=== PATIENT | female | born 1950 | race Caucasian/White ===

== ENCOUNTER → 2017-12-23 14:25 | Outpatient (CLI) | payer MEDICARE, OTHER, SELFPAY ==
[2017-12-23 18:27] LABS: Urine N gonorrhoeae NOT DETECTED
[2017-12-23 18:29] LABS: Urine Chlamydia NOT DETECTED
== END ==
PROVIDERS: Visit Provider Naturopath
DX: N39.9 Disorder of urinary system, unspecified (principal)
CPT/HCPCS: 87491; 87591

== ENCOUNTER → 2018-04-28 15:50 | Outpatient (CLI) | payer MEDICARE, OTHER, SELFPAY ==
[2018-04-28 18:17] LABS: Free T4, Direct Thyroxine 1.26 ng/dL (0.78-2.19)
[2018-04-28 18:31] LABS: Thyroid Stimulating Hormone 4.45 uIU/mL (0.47-4.68)
[2018-04-28 18:36] LABS: Ferritin 43.2 ng/mL (11.1-264)
== END ==
PROVIDERS: Visit Provider Naturopath
DX: E03.9 Hypothyroidism, unspecified (principal); D64.9 Anemia, unspecified
CPT/HCPCS: 36415; 82728; 84439; 84443; 84481

== ENCOUNTER → 2018-12-04 09:07 | Outpatient (CLI) | payer MEDICARE, OTHER, SELFPAY ==
--- NOTE | 2018-12-04 | DI.US.S_ITS ---
PROCEDURE: US PELVIC COMPLETE INDICATIONS: PELVIC PAIN, GAS AND BLOATING TECHNIQUE: Real-time scanning was performed of the pelvic organs, with image documentation. Additional endovaginal scanning was necessary due to incomplete visualization of the adnexal and endometrial structures by transabdominal scanning. COMPARISON: [facility], US, PELVIC COMPLETE, 06/18/2010, 9:13. [facility], US, PELVIC COMPLETE, 12/08/2010, 11:00. FINDINGS: Transabdominal scanning: Limited scanning through the kidneys shows no hydronephrosis. No pathologic free abdominal or pelvic fluid. Endovaginal scanning: Uterus: Uterus is normal in size at 6.1 x 3.0 x 4.3 cm. The endometrium measures 5.3 mm in combined thickness. Subcentimeter myometrial cyst. Trace endometrial fluid. Moderate amount of endocervical fluid. Ovaries: Right ovary is enlarged measuring 8.3 x 7.3 x 5.7 cm and is multicystic with the largest cystic component measuring 6.6 x 5.4 x 5.4 cm. Multiple septations are present and there is mural nodularity. Color flow Doppler demonstrates flow within one of the septations. Left ovary is mildly enlarged measuring 4.5 x 3.4 x 3.1 cm and is also multicystic in appearance with multiple irregular septations and mural nodularity. Largest cystic component measures 3.1 x 3.3 x 2.4 cm. Doppler assessment demonstrates flow within several of the septations as well as the mural nodularity. IMPRESSION: 1. Abnormal appearance of the ovaries bilaterally which are enlarged, multicystic and contain internal septations and mural nodularity as described above. Overall, the size of the cysts as well as the internal characteristics has dramatically changed from the prior examination. Gynecologic consultation is recommended for further assessment as underlying neoplastic process such as cystadenoma/cystadenocarcinoma cannot be excluded. Given the size, particularly on the right, intermittent torsion can not be completely excluded and clinical correlation is recommended. 2. Endometrial complex is mildly thickened at 5.0 mm in trace endometrial fluid present. Recommend clinical correlation and followup as early endometrial neoplastic process cannot be excluded. 3. Moderate endocervical fluid present. Dictated by: Elias TONG Interpreted: Ifrah Emery MD on 12/05/2018 at 13:16 Approved by: Ifrah Emery M.D. on 12/05/2018 at 16:12
== END ==
PROVIDERS: Visit Provider Internal Medicine
DX: R10.2 Pelvic and perineal pain (principal); R14.0 Abdominal distension (gaseous); N83.8 Other noninflammatory disorders of ovary, fallopian tube and broad ligament; N83.202 Unspecified ovarian cyst, left side; N83.201 Unspecified ovarian cyst, right side; R93.89 Abnormal findings on diagnostic imaging of other specified body structures
CPT/HCPCS: 76830; 76856

== ENCOUNTER 2019-01-04 09:56 | Day surgery (SDC) | payer MEDICARE, OTHER, SELFPAY ==
[2018-12-26 13:21] VITALS: BMI 25.0
[2019-01-04] VITALS (12 sets, daily range): BP systolic 131–177; BP diastolic 71–88; PULSE 65–78; RESP 9–15; TEMP 36.2–36.8; O2SAT 94–98; BMI 25.0
--- NOTE | 2019-01-04 | PATH_ITS ---
Note [facility] Accession Number: [id number] TESTS RESULT FLAG UNITS REF RANGE LAB Clinician Provided Cytology Information No. of containers..01 ThinPrep Vial 01 RIGHT OVARY DIAGNOSIS: 02 RIGHT OVARY NEGATIVE FOR MALIGNANT CELLS. THIS INTERPRETATION INCLUDES EVALUATION OF A CELL BLOCK. BENIGN MUCIPHAGES / MACROPHAGES IN A BACKGROUND OF ACELLUAR DEBRIS. Pathologist ICD10: 02 D27.0 02 Jennifer Macias MD, Pathologist NPI- [id number] Shar Modi, Giving Officer ([facility]) 01 70 CC, YELLOW, CLEAR /LCS FLAG LEGEND: L-Low Normal,H-High Normal,LL-Alert Low,HH-Alert High <-Panic Low,>-Panic High,A-Abnormal,AA-Critical Abnormal Performed at: 01 =Z [facility] [address], [place] [address] Hang Swift MD, 02 LCLWA [facility] [address] [place] [id number] Luci Honeycutt MD, Performed at: 01 [facility] [address], [place], [place] [id number] MD Hang Swift MD Phone: [phone]
--- NOTE | 2019-01-04 | PATH_ITS ---
[facility] Accession Number: [id number] . 01 Material submitted: . PART A: uterine adnexa - RIGHT AND LEFT OVARY AND FALLOPIAN TUBES PART B: uterus - UTERINE CURETTINGS . 01 Clinical history: . ABNORMAL FINDINGS ON DIAGNOSTIC IMAGING OTHER NONINFLAMMATORY DISORDERS OF OVARY, FALLOPIAN STRICTURE AND STENOSIS OF CERVIX UTERI . 02 Diagnosis: A. Right and Left Ovary and Fallopian Tubes, Bilateral Salpingo-oophorectomy: 1. 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 2. Bilateral fallopian tubes with no evidence of neoplasia. 3. Negative for malignancy. . B. Endometrium, Curettings: Scant superficial endometrial fragments with no evidence of neoplasia or hyperplasia. [facility] 01/12/2019 1532 Local . 02 Comment: Part A: No grossly identifiable excrescences are seen on the cyst surfaces or cyst linings. Both cysts are predominantly smooth lined, however there is focal (in 4 of 38 blocks, <5% of lining epithelium) epithelial proliferation in the form of microscopic papillary excrescenses with hierarchical branching. None to minimal cytological atypia is seen with no readily identifiable mitoses. Rare scattered calcifications are present. There is no evidence of invasive carcinoma and no high grade features are seen. These changes are focal, do not show pronounced epithelial stratification, and quantitatively and qualitatively fall short of a diagnosis of serous borderline tumor. . The entire specimen was submitted for examination. In the preliminary sections this histology was seen in statement services representative sections from the ovary that was submitted attached to a fallopian tube, however laterality was not designated on the jar or requisition. In the additional material submitted, it is not possible to distinguish laterality or detached/attached, therefore it is also not possible to determine whether this focal epithelial proliferation involves one or both ovaries. . A recent review by Celso and Marcy (see reference) states that Serous cystadenomas are benign lesions that require no adjuvant therapy. They do not recur if they are completely excised. When there is focal epithelial proliferation representing less than 10% of the lesion, the prognosis seems to be the same. That said, followup imaging, at an appropriate clinical interval is recommended. . As part of routine supervisor quality control, this case was also reviewed by Dr. Leavitt and Dr. Lundy, who agree with the diagnosis. . Reference: Celso AK, Marcy TA. 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 Surgical Pathology. 12(2019) [phone]. . 02 Electronically signed: . Luci Honeycutt MD, Pathologist NPI- [id number] . 01 Gross description: . (A) Received in formalin, labeled right + left ovaries + fallopian tubes, is an ovary (3.5 x 2.9 x 2.5 cm) with an attached fimbriated fallopian tube (length-6.5 cm, diameter-0.4 cm), an ovary (6.0 x 4.8 x 3.7 cm) and a detached fimbriated fallopian tube (length-6.5 cm, diameter-0.3 cm). The ovaries have bailey-yellow and focally bright orange smooth shiny flat serosa. The parenchyma is predominantly cystic containing pale yellow clear fluid and bailey-yellow turbid gelatinous material. The linings are smooth and flat with focally rough areas. A minimal amount of normal ovarian parenchyma is identified. The fallopian tubes have zhang-purple smooth shiny serosa and bailey unremarkable lumens. Section code: (A1-A3) attached ovary, statement services representative serial sections; (A4-A6) separate ovary, statement services representative serial sections; (A7) attached fallopian tube, statement services representative serial sections; (A8) attached fimbria, bivalved, entirely submitted; (A9) separate fallopian tube, statement services representative serial sections; (A10) separate fimbria, bivalved, entirely submitted. All remaining ovarian tissue is submitted in cassettes A11 through A38. ([facility]:[id number]) (B) Received in formalin, labeled uterine curettings, is turbid mucoid material containing multiple fragments of bailey tissue (1.7 x 1.5 by less than 0.1 cm in aggregate). Filtered and entirely submitted in cassette B1. (JM:[id number]) /MRV 01/12/2019 1532 Local . 02 Pathologist provided ICD-10: D27.9 . 02 CPT . 102553, [id number] Performed at: 01 [facility] [address] [id number] MD Hang Swift MD Phone: [phone] Performed at: 02 [facility] [address] [place] [id number] MD Luci Honeycutt MD Phone: [phone]
[2019-01-04] MEDS: LACTATED RINGERS 1,000 ML 42 ML IV (10:40)
--- NOTE | 2019-01-04 10:50 | PM.PREOP ---
Pre-operative Note Interval Note History & Physical reviewed/Exam performed by Physician: Yes Changes to H&P: No
--- NOTE | 2019-01-04 11:37 | SUR.OPER ---
Lithotomy on padded OR bed, head on pillow, arms secured on padded arm boards at <90 degrees abduction. Legs secured in padded yellow fins stirrups.
[2019-01-04] MEDS: BUPIVACAINE 0.5% W/ EPI (PF) VIAL 30 ML INJ (11:48)
--- NOTE | 2019-01-04 12:56 | PM.GYNOP.1 ---
Operative Date/Time/Diagnoses Date of procedure: 01/04/19 Time of procedure: 12:56 Pre-op diagnosis: Bilateral ovarian masses Thickened endometrial lining on ultrasound Cervical stenosis Post-op diagnosis: same Procedure & Clinicians Procedure: Procedures Operation Date: 01/04/19 11:00 Actual Procedures Side Surgeon p Hysteroscopy D&C Fiona Diaz MD s Laparoscopic Salpingoophorectomy Bilateral Fiona Diaz MD Indications: Bilateral ovarian masses Thickened endometrial lining on ultrasound Cervical stenosis Surgeon: Fiona Diaz Anesthesia Type: General Operative Notes Findings: 8 cm right ovarian mass 4 cm left ovarian mass Normal 5 week size anteverted uterus Normal tubes Normal liver Normal appendix Closure Type: primary Specimen(s): endometrial curettings, left tube & ovary, right tube & ovary and other (Right ovarian cyst fluid) Estimated blood loss (mL): 15 Blood products transfused: none Procedure in detail: Patient was taken to the operating room where she was placed in the dorsal supine position. After adequate general endotracheal anesthesia was achieved, she was placed in the dorsal lithotomy position, and prepped and draped in the usual sterile fashion. A time-out was performed. A bivalve speculum was placed into the vagina and the anterior lip of the cervix grasped with a single-tooth tenaculum. The cervical os was sequentially dilated but could not be dilated far enough to pass the Zumi uterine manipulator in. There was a gush of fluid once the cervix was dilated to about the # 5 Hegar dilator. The single-tooth tenaculum was removed from the anterior lip of the cervix. The bivalve speculum was removed from the vagina. A moistened sponge stick was placed into the vagina. Attention was then turned to the abdomen where 6 cc of 0.5% Marcaine with epinephrine were injected in the umbilical fold. A 5 mm incision was made. The Veress needle was placed into the peritoneal cavity, and its placement confirmed by aspiration and drop test. The abdominal cavity was insufflated with 3 L of CO2. The Veress needle was removed, and a 5 mm trocar was placed without difficulty. 2 other 5 mm incisions were made after 6 cc of 0.5% Marcaine with epinephrine were injected. These were placed 4 cm lateral to the midline, midway between the pubic symphysis and umbilicus. Two 5 mm trocars were placed under direct visualization. A 4th incision was made just above the pubic symphysis after 6 cc of 0.5% Marcaine with epinephrine was injected. This was a 1.5 cm incision. A 12 mm trocar was placed under direct visualization. The right tube and ovary were grasped with an atraumatic grasper. Using the PlasmaKinetic was settings of 40 w, the infundibulopelvic ligament on the right side was cauterized and cut all the way down to the cornua of the uterus. The tube was amputated at the cornua. All of this was repeated on the left side. A small Endo-Catch bag was placed through the suprapubic trocar. The left tube and ovary were placed into that bag and removed through the suprapubic incision. The 12 mm trocar was removed from the suprapubic incision. A large endobag was then placed through the incision into the peritoneal cavity and the right tube and ovary were placed into the bag. The edges of the bag were brought up through the skin edges. The Donell was placed into the bag. Approximately 180 cc of clear fluid were drained from the right ovary, with care to not spill. The bag with the remaining ovary was brought through the incision. The pelvis and abdomen were examined, and there was no bleeding noted. The pelvis was copiously irrigated with warm normal saline. The instruments were removed from the abdomen. The trocars were removed. The suprapubic incision was closed on the fascia with 0 Vicryl in a running fashion. The subcutaneous layer was closed with 3 0 Vicryl with 2 simple interrupted sutures. All of the incisions were closed with 4 0 Biosyn in a subcuticular fashion. Steri-Strips, 2 x 2, and op site were placed. Attention was then turned to the vagina where the moistened sponge stick was removed. A bivalve speculum was placed into the vagina. The single-tooth tenaculum was placed on the anterior lip of the cervix. The cervical os was dilated to the # 7 Hegar dilator. The hysteroscope passed easily into the endometrial cavity. Both fallopian tube ostia were observed. There was a small polyp at the fundus of the uterus. Hysteroscope was removed. Polyp forceps were used to remove the polyp. Sharp curettage revealed moderate amount of endometrial curettings. The instruments were removed from the uterus. The single-tooth tenaculum was removed from the anterior lip of the cervix. A bivalve speculum was removed from the vagina. Sponge, lap, and instrument counts were correct x2. The patient tolerated the procedure well, and was taken to PACU in stable condition. Complications: none Post-operative Condition: stable Disposition: PACU Plan for aftercare: Home after recovery
[2019-01-04] MEDS: HYDROMORPHONE 2 MG INJ 0.5 MG IV ×2 (13:02→13:17)
[2019-01-04] MEDS: BENZOCAINE/MENTHOL 1 LOZ PKT 1 EACH PO (13:21)
--- NOTE | 2019-01-04 13:25 | SUR.PHASEI ---
Post op PACU nu
[2019-01-04] MEDS: ONDANSETRON 4 MG/2 ML INJ IV (14:16)
--- NOTE | 2019-01-04 15:15 | SUR.PHASEI ---
Post op note late entry: PACU Note--patient arrived to PACU sedated but easily arousable. Medicated for pain to right lower abdomen 4/10. Voided per bedpan, and medicated for nausea. Jaleesa Pad dry. Dressing drainage marked. O2 sats stable on RA and transfered to OPD. Report to Arthur Quinn.
--- NOTE | 2019-01-04 16:45 | SUR.PHASEII ---
Asssumed care of pt at 1620. pt sitting up in bed and talking to at bedside. Surgical dressings observed to have small amount of blood on 2 of the 3 dressings. pt reports pain level is 2/10 and tolerable at this time and reports nausea is better at this time. dc instructions reviewed with pt spouse and pt sister. No further questions or concerns voiced. pt dressed self without any difficulties observed and voided prior to dc without any difficulties.
== END 2019-01-04 16:45 | disposition home or self-care (01) ==
PROVIDERS: PCP Internal Medicine; Visit Provider Obstetrics & Gynecology
PROC: 0UDB8ZZ Extraction of Endometrium, Via Natural or Artificial Opening Endoscopic (ICD-10-PCS; CPT 58558; principal; 2019-01-04 11:00)
PROC: 0UT24ZZ Resection of Bilateral Ovaries, Percutaneous Endoscopic Approach (ICD-10-PCS; CPT 58661; 2019-01-04 11:00)
DX: D27.0 Benign neoplasm of right ovary (principal); N88.2 Stricture and stenosis of cervix uteri; D64.9 Anemia, unspecified; M79.7 Fibromyalgia; E03.9 Hypothyroidism, unspecified
CPT/HCPCS: 58661; 58558; J0330; J1100; J1170; J1885; J2250; J2405; J2704; J3010

== ENCOUNTER → 2019-03-13 09:40 | Outpatient (CLI) | payer MEDICARE, OTHER, SELFPAY | PROVIDERS: PCP Internal Medicine; Visit Provider Internal Medicine | DX: M85.852 Other specified disorders of bone density and structure, left thigh (principal); Z78.0 Asymptomatic menopausal state; E07.9 Disorder of thyroid, unspecified; Z90.722 Acquired absence of ovaries, bilateral | CPT/HCPCS: 77080 ==

== ENCOUNTER → 2019-03-15 16:58 | Outpatient (CLI) | payer MEDICARE, OTHER, SELFPAY ==
--- NOTE | 2019-03-15 | DI.MG.S_ITS ---
BILATERAL DIGITAL SCREENING MAMMOGRAM 3D/2D WITH CAD: 03/15/2019 CLINICAL: Routine screening. Family history of breast cancer. Comparison is made to exams dated: 06/26/2013 mammogram - [facility], 04/14/2011 mammogram, and 03/18/2010 mammogram - [facility]. The tissue of both breasts is heterogeneously dense. This may lower the sensitivity of mammography. Current study was also evaluated with a Computer Aided Detection (CAD) system. No significant masses, calcifications, or other findings are seen in either breast. There has been no significant interval change. IMPRESSION: NEGATIVE There is no mammographic evidence of malignancy. A 1 year screening mammogram is recommended. This exam was interpreted at Station ID: [id number]. NOTE: For mammograms, a report in lay terms will be sent to the patient. Approximately 15% of breast malignancies will not be visualized mammographically. In the management of a palpable breast mass, a negative mammogram must not discourage biopsy of a clinically suspicious lesion. Electronically Signed By: Hang guzman/lyndsey:03/16/2019 07:35:54 letter sent: Normal Exam ACR BI-RADS Category 1: Negative 3341F
== END ==
PROVIDERS: PCP Internal Medicine; Visit Provider Internal Medicine
DX: Z12.31 Encounter for screening mammogram for malignant neoplasm of breast (principal); Z80.3 Family history of malignant neoplasm of breast
CPT/HCPCS: 77063; 77067

== ENCOUNTER → 2019-06-27 15:57 | Outpatient (CLI) | payer MEDICARE, OTHER, SELFPAY ==
[2019-06-27 17:50] LABS: Free T3, Triiodothyronine Free 3.04 pg/mL (2.77-5.27); Free T4, Direct Thyroxine 1.64 ng/dL (0.78-2.19)
[2019-06-27 18:02] LABS: Thyroid Stimulating Hormone 0.64 uIU/mL (0.47-4.68)
[2019-06-27 18:14] LABS: Ferritin 31 ng/mL (11-264)
== END ==
PROVIDERS: PCP Internal Medicine; Referring Provider Naturopath; Visit Provider Naturopath
DX: E03.9 Hypothyroidism, unspecified (principal); D64.9 Anemia, unspecified
CPT/HCPCS: 36415; 82728; 84439; 84443; 84481

== ENCOUNTER → 2019-12-14 09:43 | Outpatient (CLI) | payer MEDICARE, OTHER, SELFPAY ==
--- NOTE | 2019-12-14 | DI.US.S_ITS ---
PROCEDURE: US ABDOMEN COMPLETE INDICATIONS: GENERALIZED ABDOMINAL PAIN TECHNIQUE: Real-time scanning was performed of the abdominal and retroperitoneal organs, with image documentation. COMPARISON: [facility], US, US PELVIC COMPLETE, 12/04/2019, 11:21. FINDINGS: Liver: Liver is normal in size and homogeneous in echotexture. Gallbladder: Mobile gallstones and sludge can be seen within the gallbladder. The gallbladder wall is thickened to 8 mm. A phrygian cap can be seen. No pericholecystic fluid is seen. The sonographic Good sign is negative. Biliary ducts: Intrahepatic bile ducts are non-dilated. Extrahepatic bile duct caliber measures at the upper limits of normal at 7 mm. Pancreas: Visualized portions of the pancreas are sonographically normal. Spleen: Spleen is normal in size and homogeneous in echotexture. Kidneys: Kidneys are normal in size and echotexture. Right kidney measures 11.4 cm long; left kidney measures 10.5 cm long. No nephrolithiasis. No solid masses. A mild amount of right-sided hydronephrosis is seen. No left-sided hydronephrosis. Aorta: The abdominal aorta measures 2.2 cm proximally, 1.7 cm within the midportion and 1.8 cm distally. Iliacs: Proximal common iliac arteries are normal in caliber at less than 2.5 cm. IVC: Intrahepatic inferior vena cava is patent. Miscellaneous: No free abdominal fluid. IMPRESSION: Abnormal gallbladder, with gallstones and sludge within its lumen. The gallbladder wall is also thickened to 8 mm. No additional sonographic signs of cholecystitis can be seen. The common bile duct measures at the upper limits of normal. Please correlate with physical examination findings, patient presentation, and laboratory values. Negative for aneurysm. Mild right-sided hydronephrosis. Dictated by: Chilo Zavala M.D. on 12/14/2019 at 10:13 Approved by: Chilo Zavala M.D. on 12/14/2019 at 10:15
== END ==
PROVIDERS: PCP Internal Medicine; Referring Provider Internal Medicine; Visit Provider Internal Medicine
DX: R10.84 Generalized abdominal pain (principal); K80.20 Calculus of gallbladder without cholecystitis without obstruction; K83.8 Other specified diseases of biliary tract; N13.30 Unspecified hydronephrosis
CPT/HCPCS: 76700

== ENCOUNTER → 2019-12-21 09:45 | Outpatient (CLI) | payer MEDICARE, OTHER, SELFPAY ==
--- NOTE | 2019-12-21 09:58 | DI.CT.S_ITS ---
PROCEDURE: CT ABDOMEN PELVIS WO CON INDICATIONS: Unspecified hydronephrosis TECHNIQUE: Noncontrast 5 mm thick sections acquired from the diaphragms to the symphysis. 5 mm coronal and sagittal reformats were then performed. For radiation dose reduction, the following was used: automated exposure control, adjustment of mA and/or kV according to patient size. COMPARISON: [facility], , US ABDOMEN COMPLETE, 12/14/2019, 10:04 FINDINGS: Image quality: Excellent. ABDOMEN: Lung bases: Lung bases are clear. Heart size is normal. Solid organs: Liver is normal in size. Dense material in the dependent portion of the gallbladder most likely represents multiple tiny stones versus gallbladder sludge. No secondary signs of acute cholecystitis are identified. Pancreas is normal in contours. Spleen is normal in size. No adrenal nodules. Kidneys are normal in size, without nephrolithiasis. The renal collecting systems appear symmetric without significant hydronephrosis on this exam. Peritoneum and bowel: Multiple diverticula are seen in the sigmoid colon without signs of acute diverticulitis. Unenhanced bowel loops demonstrate normal wall thickness and caliber. No free fluid or air. Nodes and vessels: No retroperitoneal or mesenteric adenopathy by size criteria. Aorta and inferior vena cava are normal in caliber. Atherosclerotic calcifications are seen in the aorta. Miscellaneous: No ventral hernias. PELVIS: Genitourinary: Bladder wall thickness is normal. Miscellaneous: No inguinal hernias or adenopathy. Bones: No suspicious bony lesions. No vertebral body compression fractures. Mild degenerative changes are seen at the lumbosacral junction. IMPRESSION: 1. The renal collecting systems appear symmetric on this exam without hydronephrosis. No renal or ureteral calculus is seen. 2. Dense sludge versus small calculi in the dependent portion of the gallbladder without secondary signs of acute cholecystitis. Dictated by: Jamey Talamantes M.D. on 12/21/2019 at 10:04 Approved by: Jamey Talamantes M.D. on 12/21/2019 at 10:15
== END ==
PROVIDERS: PCP Internal Medicine; Referring Provider Internal Medicine; Visit Provider Internal Medicine
DX: N13.30 Unspecified hydronephrosis (principal); K57.30 Diverticulosis of large intestine without perforation or abscess without bleeding
CPT/HCPCS: 74176

== ENCOUNTER → 2020-07-11 16:22 | Outpatient (CLI) | payer MEDICARE, OTHER, SELFPAY ==
[2020-07-11 18:45] LABS: Free T3, Triiodothyronine Free 2.85 pg/mL (2.77-5.27); Free T4, Direct Thyroxine 1.61 ng/dL (0.78-2.19)
[2020-07-11 18:59] LABS: Thyroid Stimulating Hormone 1.68 uIU/mL (0.47-4.68)
[2020-07-11 19:00] LABS: Ferritin 26 ng/mL (11-264)
== END ==
PROVIDERS: PCP Internal Medicine; Referring Provider Naturopath; Visit Provider Naturopath
DX: E61.1 Iron deficiency (principal); R94.6 Abnormal results of thyroid function studies
CPT/HCPCS: 36415; 82728; 84439; 84443; 84481

== ENCOUNTER → 2021-06-26 11:31 | Outpatient (CLI) | payer MEDICARE, OTHER, SELFPAY ==
[2021-06-26 14:27] LABS: Free T4, Direct Thyroxine 1.78 ng/dL (0.78-2.19)
[2021-06-26 14:40] LABS: Thyroid Stimulating Hormone 2.53 uIU/mL (0.47-4.68)
[2021-06-26 14:43] LABS: Ferritin 40 ng/mL (11-264)
== END ==
PROVIDERS: PCP Internal Medicine; Referring Provider Naturopath; Visit Provider Naturopath
DX: D64.9 Anemia, unspecified (principal); E03.9 Hypothyroidism, unspecified
CPT/HCPCS: 36415; 82728; 84439; 84443; 84481

== ENCOUNTER → 2022-02-01 14:51 | Outpatient (CLI) | payer MEDICARE, OTHER, SELFPAY ==
--- NOTE | 2022-02-01 | DI.MG.S_ITS ---
BILATERAL DIGITAL SCREENING MAMMOGRAM 3D/2D WITH CAD: 02/01/2022 CLINICAL: Routine screening. Family history of breast cancer. Comparison is made to exams dated: 03/15/2019 mammogram and 06/26/2013 mammogram - [facility]. Both breasts are heterogeneously dense, which may obscure small masses (category c / 51-75% glandular tissue). Current study was also evaluated with a Computer Aided Detection (CAD) system. No significant masses, calcifications, or other findings are seen in either breast. There has been no significant interval change. IMPRESSION: NEGATIVE There is no mammographic evidence of malignancy. A 1 year screening mammogram is recommended. This exam was interpreted at Station ID: [id number]. NOTE: For mammograms, a report in lay terms will be sent to the patient. Approximately 15% of breast malignancies will not be visualized mammographically. In the management of a palpable breast mass, a negative mammogram must not discourage biopsy of a clinically suspicious lesion. Electronically Signed By: David thomas/lyndsey:02/01/2022 16:39:44 letter sent: Normal Exam ACR BI-RADS Category 1: Negative 3341F
== END ==
PROVIDERS: PCP Internal Medicine; Referring Provider Internal Medicine; Visit Provider Internal Medicine
DX: Z12.31 Encounter for screening mammogram for malignant neoplasm of breast (principal); M85.852 Other specified disorders of bone density and structure, left thigh; Z80.3 Family history of malignant neoplasm of breast; Z13.820 Encounter for screening for osteoporosis; Z78.0 Asymptomatic menopausal state
CPT/HCPCS: 77063; 77067; 77080

== ENCOUNTER → 2022-02-22 10:21 | Outpatient (CLI) | payer MEDICARE, OTHER, SELFPAY ==
--- NOTE | 2022-02-22 | DI.RAD.S_ITS ---
PROCEDURE: XR KNEE LT 3V INDICATIONS: LEFT KNEE PAIN TECHNIQUE: 3 views of the knee were acquired. COMPARISON: None. FINDINGS: Bones: Minimal arthrosis. No acute fracture or dislocation. Soft tissues: No significant joint effusion. IMPRESSION: Minimal arthrosis. No acute radiographic abnormality. If there is high concern for further derangement, consider MRI evaluation. Dictated by: Douglas Bautista M.D. on 02/22/2022 at 11:28 Approved by: Douglas Bautista M.D. on 02/22/2022 at 11:28
== END ==
PROVIDERS: PCP Internal Medicine; Referring Provider Internal Medicine; Visit Provider Internal Medicine
DX: M25.562 Pain in left knee (principal)
CPT/HCPCS: 73562

== ENCOUNTER → 2022-07-10 15:46 | Outpatient (CLI) | payer MEDICARE, OTHER, SELFPAY | PROVIDERS: PCP Internal Medicine; Visit Provider Physician Assistant | DX: N39.0 Urinary tract infection, site not specified (principal) | CPT/HCPCS: 87086 ==

== ENCOUNTER → 2022-10-01 08:17 | Outpatient (CLI) | payer MEDICARE, OTHER, SELFPAY ==
[2022-10-01 10:03] LABS: Free T3, Triiodothyronine Free 3.52 pg/mL (2.77-5.27); Free T4, Direct Thyroxine 1.57 ng/dL (0.78-2.19)
[2022-10-01 10:17] LABS: Thyroid Stimulating Hormone 1.62 uIU/mL (0.47-4.68)
[2022-10-01 10:33] LABS: Ferritin 44 ng/mL (11-264)
[2022-10-04 08:55] LABS: Cholesterol, Total 254 mg/dL (100-199); HDL-Cholesterol 78 mg/dL (>39); HDL-Particle (Total) 40.3 umol/L (>=30.5); LDL Particle 1527 nmol/L (<1000); LDL Size 21.7 nm (>20.5); LDL-Cholsterol 160 mg/dL (0-99); LP-IR Score <25 (<=45); Small LDL- Particle 367 nmol/L (<=527); Triglycerides 92 mg/dL (0-149)
== END ==
PROVIDERS: PCP Internal Medicine; Referring Provider Naturopath; Visit Provider Naturopath
DX: D50.9 Iron deficiency anemia, unspecified (principal); E03.9 Hypothyroidism, unspecified; E78.1 Pure hyperglyceridemia
CPT/HCPCS: 36415; 80061; 82728; 83704; 84439; 84443; 84481

== ENCOUNTER → 2023-10-11 08:09 | Outpatient (CLI) | payer MEDICARE, OTHER, SELFPAY ==
[2023-10-11 10:49] LABS: Free T3, Triiodothyronine Free 3.08 pg/mL (2.77-5.27); Free T4, Direct Thyroxine 1.63 ng/dL (0.78-2.19)
[2023-10-11 11:03] LABS: Thyroid Stimulating Hormone 0.851 uIU/mL (0.47-4.68)
[2023-10-11 11:10] LABS: Ferritin 40 ng/mL (11-264)
[2023-10-14 09:38] LABS: Cholesterol, Total 241 mg/dL (100-199); HDL-Cholesterol 71 mg/dL (>39); LDL Particle 1520 nmol/L (<1000); LDL Size 21.8 nm (>20.5); LDL-Cholsterol 156 mg/dL (0-99); LP-IR Score <25 (<=45); Small LDL- Particle 277 nmol/L (<=527); Triglycerides 80 mg/dL (0-149)
== END ==
PROVIDERS: PCP Internal Medicine; Referring Provider Naturopath; Visit Provider Naturopath
DX: E03.9 Hypothyroidism, unspecified (principal); D50.9 Iron deficiency anemia, unspecified; E78.1 Pure hyperglyceridemia
CPT/HCPCS: 36415; 80061; 82728; 83704; 84439; 84443; 84481

== ENCOUNTER → 2024-05-21 16:35 | Outpatient (CLI) | payer MEDICARE, OTHER, SELFPAY ==
[2024-05-23 12:10] LABS: Fecal Immunochemical Test Negative (Negative)
== END ==
PROVIDERS: PCP Internal Medicine; Referring Provider Internal Medicine; Visit Provider Internal Medicine
DX: Z12.11 Encounter for screening for malignant neoplasm of colon (principal)
CPT/HCPCS: 82274

== ENCOUNTER 2025-03-05 13:40 | Observation (INO) | payer MEDICARE, OTHER, SELFPAY ==
[2025-03-05] VITALS (15 sets, daily range): BP systolic 119–192; BP diastolic 66–91; PULSE 66–90; RESP 12–31; TEMP 36.3; O2SAT 95–99; BMI 25.2
--- NOTE | 2025-03-05 13:40 | DI.CT.S_ITS ---
PROCEDURE: CT ANGIO HEAD AND NECK
--- NOTE | 2025-03-05 13:40 | EKG_ITS ---
[facility]
--- NOTE | 2025-03-05 13:40 | DI.CT.S_ITS ---
PROCEDURE: CT STROKE
[2025-03-05 13:51] LABS: Add Manual Diff / Slide Review NO; Hematocrit 46.1 % (36-46); Hemoglobin 15.6 g/dL (12.0-16.0); Lymphocytes Absolute Auto 2000 /uL (1100-4500); Mean Corpuscular HGB Conc 33.8 % (30-36); Mean Corpuscular Hemoglobin 29.1 PG (26-34); Mean Corpuscular Volume 85.9 fL (80-100); Platelet Count 288 X10^3/uL (150-400)
--- NOTE | 2025-03-05 13:59 | ED_ITS ---
HPI - Neuro Symptoms/Deficit
--- NOTE | 2025-03-05 13:59 | ED.NEUROSD ---
HPI - Neuro Symptoms/Deficit General Chief Complaint: Neuro Symptoms/Deficit Stated Complaint: Code stroke Left side numbness and tingling Time Seen by Provider: 03/05/25 13:40 Source: patient, family, EMS and RN notes reviewed Mode of arrival: EMS Limitations: no limitations History of Present Illness HPI Narrative: 75-year-old female history of hypothyroidism presents with complaint of left-sided numbness and tingling of the face, and weakness of the left hand and leg that started this morning around 10 30 it did not improve and then she had recurrent symptoms around noon which have since started to improve patient states she is maybe a little bit of numbness of her left lips still. She denies any headaches, no acute vision changes no difficulty with speech no facial droop she did check and a beer. She denies chest pain or shortness of breath no nausea or vomiting no issues with bowel movements or urination. She has not had similar symptoms in the past. She takes levothyroxine 100 mcg daily denies any other daily medications. She had bilateral oophorectomy in 2019 and prior ex lap for endometriosis but denies other surgical history. No known drug allergies. No tobacco, has 2 alcoholic drinks weekly, no recreational drugs. Her primary care physician is Antonieta. She did take 2 full-dose aspirin (324mg) at noon today. On Anticoagulants: No Related Data Home Medications ?Medication ?Instructions ?Recorded ?Confirmed CHOLECALCIFEROL (VITAMIN D) 2,000 iu PO QDAY ##0 01/27/12 12/04/19 ferrous sulfate 220 mg (44 mg 220 mg PO DIRECTED ##0 05/11/17 12/04/19 iron)/5 mL oral elixir (FeroSul) levothyroxine 112 mcg capsule 112 mcg PO DAILY 12/20/18 12/04/19 Allergies Allergy/AdvReac Type Severity Reaction Status Date / Time No Known Drug Allergies Allergy Verified 12/04/19 11:06 Review of Systems Review of Systems ROS Unobtainable: All systems reviewed & are unremarkable except as noted in HPI and below Hematologic/Lymphatic On Anticoagulants: No Patient History Medical History Cervical stenosis (uterine cervix) Endometriosis determined by laparoscopy Ovarian cyst Frozen shoulder (~2004) Chronic back pain Plantar warts Anemia Hypothyroidism Surgical History Status post laparoscopy Family History Brother Age: 71 Obesity Back problem Food allergy Mother Bowel obstruction Venous insufficiency Colostomy fistula Breast cancer Diabetes mellitus Hypertension History of lumpectomy Sister Age: 75 Food allergy Brother No problems noted. Social History household members: spouse alcohol intake: current alcohol intake frequency: a few times a week Exam Narrative Exam Narrative: GEN: well nourished, well appearing female, alert and oriented x [default value], patient appears to be in mild distress. HEENT: Atraumatic, pupils are equal round reactive to light, extraocular movements are intact, nares are clear, there is no conjunctival pallor. Throat is clear without any exudates, erythema, tonsillar enlargement or uvular deviation, no facial droop HEART: Regular rate and rhythm without murmur, clicks, rubs. LUNGS:Lungs clear to auscultation, no wheezes, rales, crackles, chest moves symmetrically ABD:bowel sounds normal, soft, non-tender, no guarding, rebound, rigidity, no masses noted, no hepatosplenomegaly MSCL: Non-tender, no muscle atrophy, muscles strength 5/5 upper and lower extremities, full range of motion, normal gait NEURO:CN 2-12 intact, sensation normal, finger nose finger test normal, heel go test normal Initial Vital Signs Initial Vital Signs: Vital Signs Temperature 97.3 F L 03/05/25 13:36 Pulse Rate 90 03/05/25 13:36 Respiratory Rate 12 03/05/25 13:36 Blood Pressure 192/91 H 03/05/25 13:36 Pulse Oximetry 98 03/05/25 13:36 Oxygen Delivery Method Room Air 03/05/25 13:36 Scores NIH Stroke Scale Level of Conciousness: Alert, keenly responsive Ask month/age: Answers both questions correctly. Open/close eyes, close hand: Performs both tasks correctly Best gaze horizontal: Normal Visual lobo: No visual loss Facial palsy: Normal symetrical movement Left arm drift: No drift for full 10 sec Right arm drift: No drift for full 10 sec Left leg drift: No drift for full 5 sec Right leg drift: No drift for full 5 sec Limb ataxia: Absent Sensory on face/arms/legs: Normal, no sensory loss Best language: No aphasia, normal Extinction or inattention: No abnormality Course Orders Ordered: ED Orders 03/05/25 13:[address] angio head and neck Stat Complete Blood Count AUTO DIFF Stat Comprehensive Metabolic Panel Stat Ethanol (ETOH) Stat Troponin & CK Cardiac Panel Stat EKG-12 Lead Stat 03/05/25 13:52 PTT Partial Thromboplastin Jeff Stat Prothrombin Time INR Stat 03/05/25 14:05 Urinalysis and Microscopic Stat Urine Drug Screen, Rapid Stat Discontinued Medications Clopidogrel Bisulfate (Clopidogrel 75 Mg Tablet) 300 mg PO NOW ONE Stop: 03/05/25 15:28 Vital Signs Vital signs: Vital Signs - 8 hr 03/05/25 13:36 03/05/25 13:55 03/05/25 13:56 Temperature 97.3 F L Pulse Rate 90 86 Respiratory Rate 12 Blood Pressure 192/91 H 192/91 H Pulse Oximetry 98 98 Oxygen Delivery Method Room Air 03/05/25 13:56 03/05/25 14:00 03/05/25 14:09 Temperature Pulse Rate 85 79 Respiratory Rate 21 Blood Pressure 177/71 H Pulse Oximetry 99 98 Oxygen Delivery Method 03/05/25 14:09 03/05/25 14:30 03/05/25 14:36 Temperature Pulse Rate 71 74 Respiratory Rate 16 27 H Blood Pressure 189/79 H Pulse Oximetry 97 96 Oxygen Delivery Method 03/05/25 14:36 03/05/25 14:39 03/05/25 14:39 Temperature Pulse Rate 70 70 Respiratory Rate 16 31 H Blood Pressure 165/78 H Pulse Oximetry 97 97 Oxygen Delivery Method 03/05/25 15:00 03/05/25 15:00 03/05/25 15:27 Temperature Pulse Rate 71 70 Respiratory Rate 21 30 H Blood Pressure 192/82 H Pulse Oximetry 95 98 Oxygen Delivery Method 03/05/25 15:27 03/05/25 15:30 03/05/25 15:30 Temperature Pulse Rate 69 Respiratory Rate 17 Blood Pressure 177/79 H 157/71 H Pulse Oximetry 97 Oxygen Delivery Method MDM - Neuro Symptoms/Deficit Lab Data 03/05/25 13:40 03/05/25 13:40 Labs: Lab Results 03/05/25 03/05/25 03/05/25 Range/Units 13:40 13:52 14:05 WBC 7.3 (4.5-11.0) X10^3/uL RBC 5.37 H (4.0-5.2) X10^6/uL Hgb 15.6 (12.0-16.0) g/dL Hct 46.1 H (36-46) % MCV 85.9 (80-100) fL MCH 29.1 (26-34) PG MCHC 33.8 (30-36) % RDW 14.1 (11.6-14.8) % Plt Count 288 (150-400) X10^3/uL Neut % (Auto) 59.9 (50-75) % Lymph % (Auto) 27.4 (25-40) % [place] % (Auto) 9.5 (3-14) % Eos % (Auto) 2.2 (2-4) % Baso % (Auto) 1.0 (0-2) % Neut # (Auto) 4300 (4403-9934) /uL Lymph # (Auto) 2000 (8692-3323) /uL [place] # (Auto) 700 (0-900) /uL Eos # (Auto) 200 (0-450) /uL Baso # (Auto) 100 (0-100) /uL PT 11.7 (9.4-12.5) SECONDS INR 1.0 (0.9-1.3) APTT 33 (25.1-36.5) SECONDS Sodium 137 (137-145) mmol/L Potassium 3.7 (3.4-5.1) mmol/L Chloride 101 (98-107) mmol/L Carbon Dioxide 28 (22-32) mmol/L BUN 14 (7-17) mg/dL Creatinine 0.62 (0.52-1.04) mg/dL Estimated GFR > 60 (>60) mL/min BUN/Creatinine Ratio 22.6 H (6-22) Glucose 97 (70-99) mg/dL POC Whole Bld Glucose (70-99) mg/dL Calcium 9.1 (8.4-10.2) mg/dL Total Bilirubin 0.5 (0.2-1.3) mg/dL AST 32 (14-36) IU/L ALT 18 (<35) IU/L Alkaline Phosphatase 102 (38-126) U/L Total Creatine Kinase 44 (30-135) U/L Troponin I < 0.012 (0.01-0.034) ng/mL Total Protein 8.7 H (6.3-8.2) g/dL Albumin 4.8 (3.5-5.0) g/dL Globulin 3.9 (1.7-4.1) g/dL Albumin/Globulin Ratio 1.2 (1.0-2.8) Urine Color Yellow Urine Appearance Clear Urine pH 7.0 (4.5-8.0) Ur Specific [place] 1.010 (1.000-1.035) Urine Protein Negative (Negative) Urine Glucose (UA) Negative (Negative) g/dL Urine Ketones Negative (NEGATIVE) Urine Occult Blood Negative (Negative) Urine Nitrate Negative (Negative) Urine Bilirubin Negative (NEGATIVE) Urine Urobilinogen 0.2 (0.2) E.U./dL Ur Leukocyte Esterase Negative (NEGATIVE) Urine RBC None seen (0-5/HPF) Urine WBC 0-1/hpf (0-5/HPF) Ur Squamous Epith Cells None seen (0-5/HPF) Urine Bacteria None seen (None) Ur Culture Indicated? Cult not indicated Vol Urine Centrifuged 10ml (spun) U Opiates 300ng/mL cut Negative (Negative) Ur Oxycodone Screen Negative (Negative) Urine Methadone Screen Negative (Negative) Ur Barbiturates Screen Negative (Negative) U Tricyclic Antidepress Negative (Negative) Ur Phencyclidine Scrn Negative (Negative) Ur Amphetamines Screen Negative (Negative) U Methamphetamines Scrn Negative (Negative) Ur MDMA Scrn (Ecstasy) Negative (Negative) U Benzodiazepines Scrn Negative (Negative) Urine Cocaine Screen Negative (Negative) U Marijuana (THC) Screen Negative (Negative) Urine Specific [place] (Normal) Ethyl Alcohol < 10 (<10) mg/dL Ur Creatinine (Normal) 03/05/25 03/05/25 03/05/25 Range/Units 14:05 15:11 15:22 WBC (4.5-11.0) X10^3/uL RBC (4.0-5.2) X10^6/uL Hgb (12.0-16.0) g/dL Hct (36-46) % MCV (80-100) fL MCH (26-34) PG MCHC (30-36) % RDW (11.6-14.8) % Plt Count (150-400) X10^3/uL Neut % (Auto) (50-75) % Lymph % (Auto) (25-40) % [place] % (Auto) (3-14) % Eos % (Auto) (2-4) % Baso % (Auto) (0-2) % Neut # (Auto) (2675-5752) /uL Lymph # (Auto) (4106-7864) /uL [place] # (Auto) (0-900) /uL Eos # (Auto) (0-450) /uL Baso # (Auto) (0-100) /uL PT (9.4-12.5) SECONDS INR (0.9-1.3) APTT (25.1-36.5) SECONDS Sodium (137-145) mmol/L Potassium (3.4-5.1) mmol/L Chloride (98-107) mmol/L Carbon Dioxide (22-32) mmol/L BUN (7-17) mg/dL Creatinine (0.52-1.04) mg/dL Estimated GFR (>60) mL/min BUN/Creatinine Ratio (6-22) Glucose (70-99) mg/dL POC Whole Bld Glucose 84 98 (70-99) mg/dL Calcium (8.4-10.2) mg/dL Total Bilirubin (0.2-1.3) mg/dL AST (14-36) IU/L ALT (<35) IU/L Alkaline Phosphatase (38-126) U/L Total Creatine Kinase (30-135) U/L Troponin I (0.01-0.034) ng/mL Total Protein (6.3-8.2) g/dL Albumin (3.5-5.0) g/dL Globulin (1.7-4.1) g/dL Albumin/Globulin Ratio (1.0-2.8) Urine Color Urine Appearance Urine pH Normal (4.5-8.0) Ur Specific [place] (1.000-1.035) Urine Protein (Negative) Urine Glucose (UA) (Negative) g/dL Urine Ketones (NEGATIVE) Urine Occult Blood (Negative) Urine Nitrate (Negative) Urine Bilirubin (NEGATIVE) Urine Urobilinogen (0.2) E.U./dL Ur Leukocyte Esterase (NEGATIVE) Urine RBC (0-5/HPF) Urine WBC (0-5/HPF) Ur Squamous Epith Cells (0-5/HPF) Urine Bacteria (None) Ur Culture Indicated? Vol Urine Centrifuged U Opiates 300ng/mL cut (Negative) Ur Oxycodone Screen (Negative) Urine Methadone Screen (Negative) Ur Barbiturates Screen (Negative) U Tricyclic Antidepress (Negative) Ur Phencyclidine Scrn (Negative) Ur Amphetamines Screen (Negative) U Methamphetamines Scrn (Negative) Ur MDMA Scrn (Ecstasy) (Negative) U Benzodiazepines Scrn (Negative) Urine Cocaine Screen (Negative) U Marijuana (THC) Screen (Negative) Urine Specific [place] Normal (Normal) Ethyl Alcohol (<10) mg/dL Ur Creatinine Normal (Normal) Point of Care Testing Glucose POC 84 MDM Narrative Medical decision making narrative: 75-year-old female with stroke-like symptoms that resolve then she had a recurrence in the if since resolved again sounds like she is having stuttering TIA symptoms. NIH at this time is 0. She is no longer a candidate for tPA currently. Non-con head CT shows no acute intracranial pathology. CTA head and neck shows no significant intracranial arterial abnormality there was [id number] stenosis of right carotid bifurcation secondary to soft plaque, the right internal carotid artery has a mild stenotic disease there was no hemodynamically significant stenosis in either carotid. Any quantitative measures notes this for performed using NSAID criteria. Labs show white count of 7.3 hemoglobin 15.6 platelets of 288, coags are negative, BUN electrolytes are normal, glucose is 97 point of care glucose in the department was 84, LFTs are negative troponins less than 0.012. ETOH is less than 10. EKG shows sinus rhythm rate 84 GA 166 QRS of 94 QTC of 444. Rightward axis. No prior for comparison Patient took 650 mg of aspirin prior to arrival around noon today. Based on patient's stuttering symptoms and changes on her CT angio tele stroke was contacted. Spoke with neurology for tele stroke at [facility]/ @ 1434 they review imaging and call back Re-contact neurology spoke with them at 3:27 p.m. they recommend dual antiplatelet with the 300 mg Plavix load today followed by 75 mg Plavix times 21 days and aspirin 81 mg daily and to continue aspirin afterwards. MRI, echo, lipid panel hemoglobin A1c if patient has recurrent or new symptoms can re-contact Neurology. They did review patient's head CT and CT angio. Contacted patient's primary care Dr. Rocha for Dr. Fung for admission for CVA. Spoke with Dr. Rocha who accepts for observation. Discharge Plan Departure Patient Disposition: Admitted as Observation Clinical Impression: TIA (transient ischemic attack)
[2025-03-05 14:06] LABS: Alanine Aminotransferase 18 IU/L (<35); Albumin 4.8 g/dL (3.5-5.0); Albumin Globulin Ratio 1.2 (1.0-2.8); Alkaline Phosphatase 102 U/L (38-126); Blood Urea Nitrogen 14 mg/dL (7-17); Calcium 9.1 mg/dL (8.4-10.2); Carbon Dioxide 28 mmol/L (22-32); Chloride 101 mmol/L (98-107); Creatine Kinase 44 U/L (30-135); Estimated Glomerular Filt Rate > 60 mL/min (>60); Ethanol (ETOH) < 10 mg/dL (<10); Globulin 3.9 g/dL (1.7-4.1); Glucose 97 mg/dL (70-99); HEMOLYSIS < 15 (0-50); Potassium 3.7 mmol/L (3.4-5.1); Sodium 137 mmol/L (137-145); Total Protein 8.7 g/dL (6.3-8.2)
[2025-03-05 14:10] LABS: INR 1.0 (0.9-1.3); PTT Partial Thromboplastin Tim 33 SECONDS (25.1-36.5); Prothrombin Time 11.7 SECONDS (9.4-12.5)
[2025-03-05 14:17] LABS: Troponin I < 0.012 ng/mL (0.01-0.034)
[2025-03-05 14:34] LABS: Appearance Urine UA CLEAR; Bilirubin Urine UA NEGATIVE (NEGATIVE); Color Urine UA YELLOW; Glucose Urine UA NEGATIVE (Negative); Ketones Urine UA NEGATIVE (NEGATIVE); Leukocyte Esterase Urine UA NEGATIVE (NEGATIVE); Nitrite Urine UA NEGATIVE (Negative); Occult Blood Urine UA NEGATIVE (Negative); Protein Urine UA NEGATIVE (Negative); Specific Gravity Urine UA 1.010 (1.000-1.035); Urobilinogen Urine UA 0.2 E.U./dL (0.2)
--- NOTE | 2025-03-05 14:36 | PC.NURSE ---
POC glucose taken at 1411 and not 1511.
[2025-03-05 14:44] LABS: pH Urine UA 7.0 (4.5-8.0)
[2025-03-05 14:48] LABS: Culture Indicated Urine Cult Not Indicated; UR Morphine/Opiate cutoff 300 Negative (Negative); Ur Specific Gravity Normal (Normal); Urine MDMA Negative (Negative); Urine Methamphetamines Negative (Negative); Urine Tetrahydrocannabinol Negative (Negative); Urine Tricyclic Antidepressant Negative (Negative)
[2025-03-05] MEDS: CLOPIDOGREL 75 MG TABLET 300 MG PO (15:49)
--- NOTE | 2025-03-05 16:00 | PC.NURSE ---
[employer]PER[employer]OR Note: Consult with /[facility] TeleStroke started, 1425. Images pushed. Reports and demographics faxed. Consult completed at [id number] Kim.
--- NOTE | 2025-03-05 18:03 | P.HP_ITS ---
History of Present Illness
--- NOTE | 2025-03-05 18:03 | PM.HP.1 ---
History of Present Illness History of Present Illness Date Patient Seen: 03/05/25 Time Patient Seen: 18:03 Date of Onset of Symptoms: 03/05/25 Chief complaint: Code stroke Left side numbness and tingling Narrative: Patient is a 75-year-old female patient of Dr. Kelly who I am cross covering for who presents today with left-sided weakness. Patient was at her computer this morning and had an episode where basically her whole going to left side kind of went weak and not useful. Seemed to last for about 5 minutes then she seemed to be back to normal she continues to type and then all the sudden had another episode which lasted about similar time it was her left arm she then had some weakness in her left leg and that seemed to resolve. At that point tried to get up and felt weekend called 911. She has had no headaches no nausea no vomiting no visual changes no abdominal pain no diarrhea blood in her stool. No urinary complaints. She has had no previous issues with TIAs or strokes. No significant family history. She has otherwise been healthy. Does have a history hyperlipidemia and has been taking [id number] supplement which has improved her numbers Review of systems is otherwise normal [facility] Medical History Cervical stenosis (uterine cervix) Endometriosis determined by laparoscopy Ovarian cyst Frozen shoulder (~2004) Chronic back pain Plantar warts Anemia Hypothyroidism Surgical History Status post laparoscopy Family History Brother Age: 71 Obesity Back problem Food allergy Mother Bowel obstruction Venous insufficiency Colostomy fistula Breast cancer Diabetes mellitus Hypertension History of lumpectomy Sister Age: 75 Food allergy Brother No problems noted. Social History household members: spouse Smoking Status: Never smoker alcohol intake: current Meds Home Medications and Allergies Home Medications ?Medication ?Instructions ?Recorded ?Confirmed ?Type CHOLECALCIFEROL (VITAMIN D) 2,000 iu PO QDAY ##0 01/27/12 12/04/19 History ferrous sulfate 220 mg (44 mg 220 mg PO DIRECTED ##0 05/11/17 12/04/19 History iron)/5 mL oral elixir (FeroSul) levothyroxine 112 mcg capsule 112 mcg PO DAILY 12/20/18 12/04/19 History Allergies Allergy/AdvReac Type Severity Reaction Status Date / Time No Known Drug Allergies Allergy Verified 12/04/19 11:06 Review of Systems Constitutional Comments: Negative except above Exam Vital Signs (past 8 hours): - 03/05/25 13:36 03/05/25 13:55 03/05/25 13:56 Temperature 97.3 F L Pulse Rate 90 86 Respiratory Rate 12 Blood Pressure 192/91 H 192/91 H Pulse Oximetry 98 98 Oxygen Delivery Method Room Air 03/05/25 13:56 03/05/25 14:00 03/05/25 14:09 Temperature Pulse Rate 85 79 Respiratory Rate 21 Blood Pressure 177/71 H Pulse Oximetry 99 98 Oxygen Delivery Method 03/05/25 14:09 03/05/25 14:30 03/05/25 14:36 Temperature Pulse Rate 71 74 Respiratory Rate 16 27 H Blood Pressure 189/79 H Pulse Oximetry 97 96 Oxygen Delivery Method 03/05/25 14:36 03/05/25 14:39 03/05/25 14:39 Temperature Pulse Rate 70 70 Respiratory Rate 16 31 H Blood Pressure 165/78 H Pulse Oximetry 97 97 Oxygen Delivery Method 03/05/25 15:00 03/05/25 15:00 03/05/25 15:27 Temperature Pulse Rate 71 70 Respiratory Rate 21 30 H Blood Pressure 192/82 H Pulse Oximetry 95 98 Oxygen Delivery Method 03/05/25 15:27 03/05/25 15:30 03/05/25 15:30 Temperature Pulse Rate 69 Respiratory Rate 17 Blood Pressure 177/79 H 157/71 H Pulse Oximetry 97 Oxygen Delivery Method 03/05/25 16:00 03/05/25 16:00 03/05/25 16:30 Temperature Pulse Rate 72 Respiratory Rate 13 Blood Pressure 163/74 H 155/70 H Pulse Oximetry 97 Oxygen Delivery Method Room Air 03/05/25 16:30 03/05/25 16:41 Temperature Pulse Rate 66 68 Respiratory Rate 13 16 Blood Pressure Pulse Oximetry 97 95 Oxygen Delivery Method Oxygen Delivery Method Room Air Narrative Exam Narrative: Alert smiling female in no acute distress HEENT exam is unremarkable neck supple without adenopathy JVD or bruits lungs are clear heart is regular rate and rhythm abdomen is soft positive bowel sounds nontender neurologic exam shows cranial nerves 2-12 intact motor 5/5 reflexes 2+ and symmetric did not get up to move for gait Objective Labs 03/05/25 13:40 03/05/25 13:40 Labs: Laboratory Results - last 24 hr 03/05/25 03/05/25 03/05/25 13:40 13:52 14:05 WBC 7.3 RBC 5.37 H Hgb 15.6 Hct 46.1 H MCV 85.9 MCH 29.1 MCHC 33.8 RDW 14.1 Plt Count 288 Neut % (Auto) 59.9 Lymph % (Auto) 27.4 [place] % (Auto) 9.5 Eos % (Auto) 2.2 Baso % (Auto) 1.0 Neut # (Auto) 4300 Lymph # (Auto) 2000 [place] # (Auto) 700 Eos # (Auto) 200 Baso # (Auto) 100 PT 11.7 INR 1.0 APTT 33 Sodium 137 Potassium 3.7 Chloride 101 Carbon Dioxide 28 BUN 14 Creatinine 0.62 Estimated GFR > 60 BUN/Creatinine Ratio 22.6 H Glucose 97 POC Whole Bld Glucose Calcium 9.1 Total Bilirubin 0.5 AST 32 ALT 18 Alkaline Phosphatase 102 Total Creatine Kinase 44 Troponin I < 0.012 Total Protein 8.7 H Albumin 4.8 Globulin 3.9 Albumin/Globulin Ratio 1.2 Urine Color Yellow Urine Appearance Clear Urine pH 7.0 Ur Specific [place] 1.010 Urine Protein Negative Urine Glucose (UA) Negative Urine Ketones Negative Urine Occult Blood Negative Urine Nitrate Negative Urine Bilirubin Negative Urine Urobilinogen 0.2 Ur Leukocyte Esterase Negative Urine RBC None seen Urine WBC 0-1/hpf Ur Squamous Epith Cells None seen Urine Bacteria None seen Ur Culture Indicated? Cult not indicated Vol Urine Centrifuged 10ml (spun) U Opiates 300ng/mL cut Negative Ur Oxycodone Screen Negative Urine Methadone Screen Negative Ur Barbiturates Screen Negative U Tricyclic Antidepress Negative Ur Phencyclidine Scrn Negative Ur Amphetamines Screen Negative U Methamphetamines Scrn Negative Ur MDMA Scrn (Ecstasy) Negative U Benzodiazepines Scrn Negative Urine Cocaine Screen Negative U Marijuana (THC) Screen Negative Urine Specific [place] Ethyl Alcohol < 10 Ur Creatinine 03/05/25 03/05/25 03/05/25 14:05 15:11 15:22 WBC RBC Hgb Hct MCV MCH MCHC RDW Plt Count Neut % (Auto) Lymph % (Auto) [place] % (Auto) Eos % (Auto) Baso % (Auto) Neut # (Auto) Lymph # (Auto) [place] # (Auto) Eos # (Auto) Baso # (Auto) PT INR APTT Sodium Potassium Chloride Carbon Dioxide BUN Creatinine Estimated GFR BUN/Creatinine Ratio Glucose POC Whole Bld Glucose 84 98 Calcium Total Bilirubin AST ALT Alkaline Phosphatase Total Creatine Kinase Troponin I Total Protein Albumin Globulin Albumin/Globulin Ratio Urine Color Urine Appearance Urine pH Normal Ur Specific [place] Urine Protein Urine Glucose (UA) Urine Ketones Urine Occult Blood Urine Nitrate Urine Bilirubin Urine Urobilinogen Ur Leukocyte Esterase Urine RBC Urine WBC Ur Squamous Epith Cells Urine Bacteria Ur Culture Indicated? Vol Urine Centrifuged U Opiates 300ng/mL cut Ur Oxycodone Screen Urine Methadone Screen Ur Barbiturates Screen U Tricyclic Antidepress Ur Phencyclidine Scrn Ur Amphetamines Screen U Methamphetamines Scrn Ur MDMA Scrn (Ecstasy) U Benzodiazepines Scrn Urine Cocaine Screen U Marijuana (THC) Screen Urine Specific [place] Normal Ethyl Alcohol Ur Creatinine Normal Assessment & Plan Assessment & Plan narrative: Assessment TIA. Certainly concerning. ER department talked with stroke telehealth and they recommend admit workup and platelet therapy. She does have a small area in her carotid which is not significant enough to treat but present we discussed all this. At this point she will need echo and MRI and if normal will go home tomorrow. We discussed platelet therapy she understands agrees. We also discussed given the fact that she has some plaque present that a statin would be important. I think Crestor be the best choice do not have on current list of medicines so we will start that tomorrow. She understands reasoning behind that. Usual TIA precautions Hyperlipidemia will treat with Crestor as outpatient. History of hypothyroidism we will follow as outpatient continue her usual meds Code status full DVT prophylaxis patient is mobilizing will do SCDs for now unlikely to be here very long. Disposition. We will observe with the next 12 hours MRI echo if all stable discharged home tomorrow Time-Based Coding :: [TOTAL MINUTES] spent with patient and on the chart (including review of chart, obtaining history, exam, reviewing outside data, placing orders, documenting exam and treatment plan, and counseling patient) on [DATE]. Quality VTE Deep Vein Thrombosis/Pulmonary Embolism Present on Admission: No
[2025-03-05 18:25] LABS: Cholesterol 277 mg/dL (140-199); HDL Cholesterol 80 mg/dL (40-60); Triglycerides 220 mg/dL (35-150)
[2025-03-05 18:27] LABS: Hemoglobin A1C% w Est Avg Glu 5.4 % (4.0-6.0)
[2025-03-06 00:19] VITALS: BP 131/77; PULSE 61; RESP 18; TEMP 36.1; O2SAT 98
[2025-03-06 04:45] VITALS: BP 116/72; PULSE 69; RESP 16; TEMP 36.1; O2SAT 96
[2025-03-06] MEDS: LEVOTHYROXINE 112 MCG TABLET PO (05:44)
[2025-03-06 07:58] VITALS: BP 130/78; PULSE 72; RESP 18; TEMP 36.2; O2SAT 96
[2025-03-06] MEDS: CLOPIDOGREL 75 MG TABLET PO (08:52)
[2025-03-06] MEDS: ASPIRIN EC 81 MG TABLET PO (08:52)
--- NOTE | 2025-03-06 09:05 | PT.IIE ---
Surgical History (Last Reviewed 03/05/25 @ 14:23 by Nancy Kim DO) Status post laparoscopy Medical History (Last Reviewed 03/05/25 @ 14:23 by Nancy Kim DO) Anemia Cervical stenosis (uterine cervix) Chronic back pain Endometriosis determined by laparoscopy Frozen shoulder (~2004) Hypothyroidism Ovarian cyst Plantar warts Physical Therapy Inpatient Evaluation/Re-Eval M1 PT IP Prior Functional Status Start: 03/06/25 11:17 Freq: NEEDED Status: Active Protocol: Document 03/06/25 09:05 AB (Rec: 03/06/25 11:27 [id number]) Medical Review Prior Functional Status Medical History Yes Reviewed Communication able to make needs known Mobility and Gait pt stated that she is independent with all mobilities and ambulation without AD Activities of Daily I Living and IADL's Social History Household Members spouse Living Arrangements House Number of Floors ( 3 or More Floors Floors) Number of Stairs To 3 steps wide bilateral rails and can only hold on to Enter/Railing? one rail at a time: usually uses the R rail ascending has 4 steps L rail descending to her office has 10 steps R rail ascending to bedroom level Home Environment Standard Height Toilet,Tub/Shower Additional Social pt's spouse will not be able to assist pt and pt stated History Comment that she usually assists her spouse pt has hiking poles M2 PT-IP Current Condition Start: 03/06/25 11:17 Freq: NEEDED Status: Active Protocol: Document 03/06/25 09:05 AB (Rec: 03/06/25 11:27 [id number]) Physical Therapy Current Condition Current Condition Evaluation Date 03/06/25 Treatment Diagnosis TIA; difficulty in walking Onset Date 03/05/25 M3 PT-IP Subjective Start: 03/06/25 11:17 Freq: NEEDED Status: Active Protocol: Document 03/06/25 09:05 AB (Rec: 03/06/25 11:27 [id number]) Subjective Physical Therapy Visit Type Type Initial Evaluation Visit Start Time 09:05 Visit Stop Time 09:25 Number of HOT DIE PRESS FEEDER Visits 0 Physical Therapy Visit Comments Patient Comments agreeable to do PT Therapy Pain Assessment Pain Present Pain Present Denied Pain M4 PT-IP Mobility and Gait Start: 03/06/25 11:17 Freq: NEEDED Status: Active Protocol: Document 03/06/25 09:05 (Rec: 03/06/25 11:27 AB [id number]) PT-Bed Mobility Assessment Supine to Sit Supine to Sit Independent Sit to Supine Sit to Supine Independent PT-Transfer Assessment Sit to and From Stand Sit to and from Independent Stand Equipment Transfer Assistive None,Gait Belt Device Orthotic/Prosthetic No Devices or Brace: Transfers Transfer Destination Chair Transfer Technique ambulated Transfer Ability Level of Assist Independent Comments Mobility Comments pt in bed and agreeable to do PT. obtained PLOF and home set up. BP: 143/87. completed supine to sit I. sit to stand I and ambulated in room without AD initial SBA; ambulated out in the hallway without AD I. completed up/down steps using R rail ascending SBA for safety. pt ambulated back to her room and sat on the chair. call light and table placed within reach. no further PT needs. pt agreed. nurse informed. Gait Assessment Gait Gait Assistance Independent,Standby Assistance Required: Distance (Feet) 250 Able to Maintain Yes Weight Bearing Status During Gait Assistive Devices Assistive Device None,Gait Belt Orthotic/Prosthetic No Devices or Brace: Gait Deviations General Gait Pattern Antalgic Stair Climbing Assessment Evaluation Level of Assist On Standby Assistance Stairs Devices Stair Climbing Right Railing Assistive Devices Technique/Endurance Stair Climbing Ascend and Descend Direction Stair Climbing Step Over Step Technique Number of Steps 3 Climbed Query Text: Stair Climbing Set # 3 Repetitions (reps) PT-Balance Assessment Sitting Balance and Reactions Static Sitting Normal Balance Ability Dynamic Sitting Normal Balance Ability Standing Balance and Reactions Static Standing Normal Balance Ability Dynamic Standing Good Balance Ability Device Used without AD M5 PT-IP Objective Assessments Start: 03/06/25 11:17 Freq: NEEDED Status: Active Protocol: Document 03/06/25 09:05 AB (Rec: 03/06/25 11:27 AB [id number]) Orientation Orientation/Cognition Level of Alertness Alert Orientation Name,Age,Birthday,Month,Date,Year,Day of Week,Place, Situation Language Function No Deficits Noted Ability Safety Awareness Understands Safety Issues Memory Description No Deficits Noted Gross Range of Motion Lower Extremity ROM Assessment Within Functional Limits Strength Lower Extremity Strength Assessment Within Functional Limits Muscle Tone Muscle Tone WNL Yes M7 PT-IP Assessment and Plan Start: 03/06/25 11:17 Freq: NEEDED Status: Active Protocol: Document 03/06/25 09:05 AB (Rec: 03/06/25 11:27 AB [id number]) PT Summary Assessment and Plan Potential Rehabilitation Good Potential Status of Condition Stable at Evaluation Summary Assessment Summary pt is a 75 y/o F who presented with L sided weakness/ numbness/tingling and symptoms resolved. pt admitted for TIA. pt is modified independent with bed mobility, transfers and ambulation without AD and SBA for stair climbing provided for safety. PT eval completed and no further PT interventions needed. Frequency of Treatment Frequency Of Discharge Treatment Recommendations To Nursing Amount of Assist Independent Needed Discharge Recommendations PT Discharge Home Recommendations Transportation Needs Private Vehicle at Discharge - PT assist 1
--- NOTE | 2025-03-06 09:45 | OT.IP.EVAL ---
Past Medical History (Last Reviewed 03/05/25 @ 14:23 by Nancy Kim DO) Anemia Cervical stenosis (uterine cervix) Chronic back pain Endometriosis determined by laparoscopy Frozen shoulder (~2004) Hypothyroidism Ovarian cyst Plantar warts Surgical History (Last Reviewed 03/05/25 @ 14:23 by Nancy Kim DO) Status post laparoscopy Occupational Therapy Inpatient Evaluation/Re-Eval M1 OT IP Prior Functional Status Start: 03/06/25 10:12 Freq: Status: Active Protocol: Document 03/06/25 10:12 [facility] (Rec: 03/06/25 10:23 [facility] Desktop) Medical Review Prior Functional Status Communication I Mobility and Gait I Activities of Daily I Living and IADL's Prior Functional 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 Level (Other details ) Social History Household Members spouse Living Arrangements House Number of Stairs To Pt lives in a tri-level house with multiple steps and Enter/Railing? railing. 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 Per pt, her has been having balance issues and uses cane/poles. M2 OT-IP Current Condition Start: 03/06/25 10:12 Freq: Status: Active Protocol: Document 03/06/25 10:12 [facility] (Rec: 03/06/25 10:23 [facility] Desktop) Occupational Therapy Current Condition Current Condition Evaluation Date 03/06/25 Treatment Diagnosis TIA Diagnosis Onset Date 03/05/25 M3 OT- IP Subjective and Pain Start: 03/06/25 10:12 Freq: Status: Active Protocol: Document 03/06/25 10:12 [facility] (Rec: 03/06/25 10:23 [facility] Desktop) OT- Subjective Occupational Therapy Visit Type Type Initial Evaluation Visit Start Time 09:15 Visit Stop Time 09:45 Occupational Therapy Visit Comments Patient Comments Pt agreed to do OT eval. Patient/Caregiver TO go home. Goals OT Pain Assessment Pain When Pain Assessed At Rest Pain Present Pain Present Denied Pain M4 OT- IP ADL's Start: 03/06/25 10:12 Freq: Status: Active Protocol: Document 03/06/25 10:12 [facility] (Rec: 03/06/25 10:23 [facility] Desktop) OT [id number] General Evaluation Self-Feeding Ability Independent OT ADL-Grooming General Evaluation Grooming Ability Independent OT ADL-Oral Care General Eval Oral Care Ability Independent OT ADL-Dressing General Eval Upper Body Dressing Independent Ability Lower Body Dressing Independent Ability OT ADL-Toileting General Evaluation Toileting Ability Independent OT ADL-Bathing Comments OT Bathing Comments Suggested to get grab bar or transfer pole and use of shower chair if needed. M5 OT- IP IADL's Start: 03/06/25 10:12 Freq: Status: Active Protocol: Document 03/06/25 10:12 [facility] (Rec: 03/06/25 10:23 [facility] Desktop) OT-Instrumental Activities of Daily Living Deficits IADL Deficits No Deficits Identified Home Safety Awareness Awareness of Need Good Awareness for Assistance at Home Ability to Problem Able to Problem Solve Solve Emergency Situations Medication Management Medication No Deficits Identified Management Money Management Money Management No Deficits Identified Meal Preparation Meal Preparation No Deficits Identified Hedis Registered Nurse Rn Hedis Registered Nurse Rn No Deficits Identified M6 OT- IP Functional Cognition Start: 03/06/25 10:12 Freq: Status: Active Protocol: Document 03/06/25 10:12 [facility] (Rec: 03/06/25 10:23 [facility] Desktop) Cognitive Factors Limiting Selfcare Function Cognitive Ability Level of Alertness Alert Patient Orientation Name,Age,Birthday,Month,Date,Year,Day of Week,Place, Situation Attention Span Capable of Focused Attention,Capable of Sustained Ability Attention Ability to Follow Able to Follow Multi-Step Commands Commands Cognitive Comments Cognitive Assessment Pt is a bit talkative but intact. Pt scored 59 seconds Comments on [place] Making Part B which implies normal for visual attention, speed of processing, mental flexibility, task switching, and executive functioning. Pt is aware that she has been putting off safety measures in the home - suggested use of night lights, touch lamp or motion detection when getting up to the bathroom at night, grab bars/transfer pole to increase safety to get into and out of the tub. OT- Vision and Hearing OT- Hearing Assessment OT- Hearing WFL Assessment OT- Vision Assessment Visual Acuity Glasses All The Time Visual Attentiveness WFL Occular Pursuits WFL Visual Convergence WFL Visual Koenig WFL Diplopia Absent M7 OT- IP Mobility and Balance Start: 03/06/25 10:12 Freq: Status: Active Protocol: Document 03/06/25 10:12 [facility] (Rec: 03/06/25 10:23 [facility] Desktop) OT-Transfer Assessment Sit to and From Stand Sit to and from Independent Stand Transfers Transfer Ability Independent Devices Transfer Assistive None Devices OT- Balance Assessment Sitting Balance and Reactions Static Sitting Normal Balance Ability Dynamic Sitting Normal Balance Ability Standing Balance and Reactions Static Standing Normal Balance Ability Dynamic Standing Good Balance Ability Comments Other Balance Tests/ Pt independent in the room and able to get up and down Deviations/Treatment from the floor with use of recliner to assist for : support. M8 OT- IP Objective Assessments Start: 03/06/25 10:12 Freq: Status: Active Protocol: Document 03/06/25 10:12 [facility] (Rec: 03/06/25 10:23 [facility] Desktop) OT Gross Range of Motion Upper Extremity Range of Motion Assessment Within Functional Limits OT Strength Upper Extremity Strength Assessment Within Functional Limits OT- Coordination Assessment Upper Extremity Finger to Nose Test Within Functional Limits OT Sensation Assessment Comments Summary Comments Slight decrease for proprioception with left arm. Pt also did not realize was keeping her left arm flexed at elbow while brushing her teeth. Edema Edema Absent M9 OT- IP Assessment and Plan Start: 03/06/25 10:12 Freq: Status: Active Protocol: Document 03/06/25 10:12 [facility] (Rec: 03/06/25 10:23 [facility] Desktop) OT Summary Assessment and Plan Potential Rehabilitation Excellent Potential Analytic Complexity Low at Evaluation Summary Progress Towards Safe For Discharge Goals Assessment Summary Pt low complexity and main suggestion for pt is suggestions for safety equipment at home- night lights, grab bars, transfer pole, etc. Pt seemingly back to her baseline except for slight decrease in proprioception in left arm. Pt to go home when medically stable. Frequency of Treatment Frequency Of Discharge Treatment Discharge Recommendations OT Discharge Home Recommendations Transportation Needs Private Vehicle at Discharge
[2025-03-06 12:02] VITALS: BP 93/63; PULSE 75; RESP 18; TEMP 36.3; O2SAT 97
--- NOTE | 2025-03-06 12:15 | SLP.IPNOTE ---
Chart reviewed, RN notified. ST screened for dysphagia and cognition/language/speech. Pt sitting upright in chair in room, reading a book while eating lunch. Pt cognition/speech/language/dysphagia appear WNL and she reports she is at her baseline. ST recommends another referral be placed if anything changes.
--- NOTE | 2025-03-06 12:52 | P.DS_ITS ---
History of Present Illness
--- NOTE | 2025-03-06 12:52 | PM.DS.1 ---
History of Present Illness History of Present Illness Date Patient Seen: 03/06/25 Time Patient Seen: 12:52 Chief complaint: Code stroke Left side numbness and tingling Narrative: Patient is a 75-year-old female patient of Dr. Fung who I am cross covering for who presents today with left-sided weakness. Patient was at her computer this morning and had an episode where basically her whole going to left side kind of went weak and not useful. Seemed to last for about 5 minutes then she seemed to be back to normal she continues to type and then all the sudden had another episode which lasted about similar time it was her left arm she then had some weakness in her left leg and that seemed to resolve. At that point tried to get up and felt weekend called 911. She has had no headaches no nausea no vomiting no visual changes no abdominal pain no diarrhea blood in her stool. No urinary complaints. She has had no previous issues with TIAs or strokes. No significant family history. She has otherwise been healthy. Does have a history hyperlipidemia and has been taking [id number] supplement which has improved her numbers Review of systems is otherwise normal Discharge Providers Provider Date of admission: 03/05/25 15:50 Discharge Date: 03/06/25 Primary care physician: Janny Fung MD Consults: 03/05/25 17:55 Consult to Discharge Planning Routine Comment: Consult to Occupational Therapy Evaluate & Treat Comment: Physician Instructions: Evaluate and treat Consult to Physical Therapy Evaluate & Treat Comment: Physician Instructions: Evaluate and Treat Consult to Speech Therapy Evaluate & Treat Comment: Physician Instructions: Evaluate and treat Discharge provider: Romeo Rocha MD Summary Hospital Course Discharge Diagnosis: TIA Hypothyroidism Hospital Course: TIA. Patient was admitted placed on Plavix and aspirin dual therapy as per tele stroke recommendation she was placed on tele and no arrhythmia was noted. Blood pressure remained stable. She would initially was elevated but after that came down on her own. No treatment was done. She otherwise had no further events. No numbness no tingling no other change. MRI showed no abnormality. Echo was normal. Discussed what this represents. She did have slight abnormality on her carotid with some endovascular change. We went through recommendation will start Crestor 10 mg and will be followed as an outpatient. Will continue with Plavix at least for a month and then go to aspirin. Could consider Neurology outpatient referral. I do believe a Zio patch would be a good idea. We are left with no definitive cause other than the possible plaque in her neck. We discussed the importance of statins and higher dose would certainly be recommended although she wants to start with a lower dose and can be adjusted as an outpatient. PT OT found no major issues. Hypothyroidism stable continue usual meds no issue during treatment TSH was normal. 35 minutes spent dictating review of information discussion with the patient discharge dictation and orders Exam Vital Signs (past 8 hours): - 03/06/25 07:58 03/06/25 12:02 Temperature 97.1 F L 97.3 F L Pulse Rate 72 75 Respiratory Rate 18 18 Blood Pressure 130/78 93/63 Pulse Oximetry 96 97 Oxygen Delivery Method Room Air Oxygen Flow Rate 0 Narrative Exam Narrative: Alert female smiling interactive in no acute distress Lungs are clear heart is regular rate and rhythm neurologic exam is nonfocal Objective Labs 03/05/25 13:40 03/05/25 13:40 Labs: Laboratory Results - last 24 hr 03/05/25 03/05/25 03/05/25 13:40 13:52 14:05 WBC 7.3 RBC 5.37 H Hgb 15.6 Hct 46.1 H MCV 85.9 MCH 29.1 MCHC 33.8 RDW 14.1 Plt Count 288 Neut % (Auto) 59.9 Lymph % (Auto) 27.4 [place] % (Auto) 9.5 Eos % (Auto) 2.2 Baso % (Auto) 1.0 Neut # (Auto) 4300 Lymph # (Auto) 2000 [place] # (Auto) 700 Eos # (Auto) 200 Baso # (Auto) 100 PT 11.7 INR 1.0 APTT 33 Sodium 137 Potassium 3.7 Chloride 101 Carbon Dioxide 28 BUN 14 Creatinine 0.62 Estimated GFR > 60 BUN/Creatinine Ratio 22.6 H Glucose 97 POC Whole Bld Glucose Hemoglobin A1c 5.4 Calcium 9.1 Total Bilirubin 0.5 AST 32 ALT 18 Alkaline Phosphatase 102 Total Creatine Kinase 44 Troponin I < 0.012 Total Protein 8.7 H Albumin 4.8 Globulin 3.9 Albumin/Globulin Ratio 1.2 Triglycerides 220 H Cholesterol 277 H LDL Cholesterol, Calc 153 H HDL Cholesterol 80 H Urine Color Yellow Urine Appearance Clear Urine pH 7.0 Ur Specific [place] 1.010 Urine Protein Negative Urine Glucose (UA) Negative Urine Ketones Negative Urine Occult Blood Negative Urine Nitrate Negative Urine Bilirubin Negative Urine Urobilinogen 0.2 Ur Leukocyte Esterase Negative Urine RBC None seen Urine WBC 0-1/hpf Ur Squamous Epith Cells None seen Urine Bacteria None seen Ur Culture Indicated? Cult not indicated Vol Urine Centrifuged 10ml (spun) U Opiates 300ng/mL cut Negative Ur Oxycodone Screen Negative Urine Methadone Screen Negative Ur Barbiturates Screen Negative U Tricyclic Antidepress Negative Ur Phencyclidine Scrn Negative Ur Amphetamines Screen Negative U Methamphetamines Scrn Negative Ur MDMA Scrn (Ecstasy) Negative U Benzodiazepines Scrn Negative Urine Cocaine Screen Negative U Marijuana (THC) Screen Negative Urine Specific [place] Ethyl Alcohol < 10 Ur Creatinine 03/05/25 03/05/25 03/05/25 14:05 15:11 15:22 WBC RBC Hgb Hct MCV MCH MCHC RDW Plt Count Neut % (Auto) Lymph % (Auto) [place] % (Auto) Eos % (Auto) Baso % (Auto) Neut # (Auto) Lymph # (Auto) [place] # (Auto) Eos # (Auto) Baso # (Auto) PT INR APTT Sodium Potassium Chloride Carbon Dioxide BUN Creatinine Estimated GFR BUN/Creatinine Ratio Glucose POC Whole Bld Glucose 84 98 Hemoglobin A1c Calcium Total Bilirubin AST ALT Alkaline Phosphatase Total Creatine Kinase Troponin I Total Protein Albumin Globulin Albumin/Globulin Ratio Triglycerides Cholesterol LDL Cholesterol, Calc HDL Cholesterol Urine Color Urine Appearance Urine pH Normal Ur Specific [place] Urine Protein Urine Glucose (UA) Urine Ketones Urine Occult Blood Urine Nitrate Urine Bilirubin Urine Urobilinogen Ur Leukocyte Esterase Urine RBC Urine WBC Ur Squamous Epith Cells Urine Bacteria Ur Culture Indicated? Vol Urine Centrifuged U Opiates 300ng/mL cut Ur Oxycodone Screen Urine Methadone Screen Ur Barbiturates Screen U Tricyclic Antidepress Ur Phencyclidine Scrn Ur Amphetamines Screen U Methamphetamines Scrn Ur MDMA Scrn (Ecstasy) U Benzodiazepines Scrn Urine Cocaine Screen U Marijuana (THC) Screen Urine Specific [place] Normal Ethyl Alcohol Ur Creatinine Normal PFSH Medical History Cervical stenosis (uterine cervix) Endometriosis determined by laparoscopy Ovarian cyst Frozen shoulder (~2004) Chronic back pain Plantar warts Anemia Hypothyroidism Surgical History Status post laparoscopy Family History Brother Age: 71 Obesity Back problem Food allergy Mother Bowel obstruction Venous insufficiency Colostomy fistula Breast cancer Diabetes mellitus Hypertension History of lumpectomy Sister Age: 75 Food allergy Brother No problems noted. Social History household members: spouse Smoking Status: Never smoker alcohol intake: current Discharge Assessment & Plan Assessment and Plan Assessment: Improved Plan of Treatment: Discharge home Discharge Plan Discharge Plan Patient Disposition: Home Discharge orders & Medications Prescriptions: New clopidogrel 75 mg Tablet 75 mg PO DAILY Qty: 90 1RF Continued CHOLECALCIFEROL (VITAMIN D) 2,000 iu PO QDAY Qty: 0 ferrous sulfate [FeroSul] 220 MG/5 ML elixir 220 mg PO DIRECTED Qty: 0 levothyroxine 112 mcg capsule 112 mcg PO DAILY Follow up/Referrals: Janny Fung MD [Primary Care Provider, [facility]] - 1 Week Referral Note: Call for appointment Discharge Health Status Multidrug resistant organism: No MDRO Diet/Activity/Treatments Diet: Diet as Tolerated Activity: As tolerated Visit Report/Discharge Packet Stand Alone Forms: Patient Portal/API, Stroke Signs & Symptoms Discharge Data Primary Care Provider: Janny Fung Attending Provider: Romeo Rocha Admit Date/Time: 03/05/25 15:50 Quality VTE Deep Vein Thrombosis/Pulmonary Embolism Present on Admission: No
--- NOTE | 2025-03-06 13:09 | CM.DANOTE ---
DCP Assessment Note: Pt is a 75yo female, resident [facility], is admitted for CVA work up. Pt lives in a house with her spouse, Soren. Pt's Primary Care Provider is Dr. Janny Fung MD and insurance is Medicare. Reviewed chart and discussed with multidisciplinary team pt's medical status and initial discharge needs. DCP met w/patient at bedside; introduced self and role. Patient was found in bed, alert and oriented, cooperative with assessment. Pt confirmed living situation and good support in . Pt expressed preference in discharge home when cleared. Pt states she is indep at baseline. Pt denies any history of home health or SNF Rehab and does not believe any referrals needed in the community at this time. Per PT, recommending dc home. Plan: Anticipating discharge home with friend or taxi to transport, pt states she will coordinate this independently. CM team will follow closely for coordination of discharge plans. KINGSTON Tran Discharge Planning/Care Management CM Discharge Assessment Start: 03/05/25 17:09 Freq: Status: Active Protocol: Document 03/06/25 13:07 MW (Rec: 03/06/25 13:08 MW [id number]) Discharge Planning Assessment Assigned Discharge MARJAN Recinos Multifocal Button Inspector Provider Janny Fung MD Insurance Medicare DPOA/Assigned Soren Burt, Designee Name Contact Information [phone] Advance Directives? No Advance Directives Yes on File History Provided By Patient Has Patient been No admitted in last 30 days? Prior Living House Arrangements Household Members spouse Type of Drives own vehicle transporation used prior to admit Independent with ADL Yes 's Is patient alert and Yes oriented? Discharge Plan Home Transportation Friend vs. Taxi Arrangement Referrals Initiated None needed Review Status In Process Please Provide Date 03/06/25 Initial DC Assessment Was Performed Next Review Type Continued Stay Review
--- NOTE | 2025-03-06 13:39 | PC.NURSE ---
Pt is dressed and ready for discharge home with Friend. IV and tele have been removed. Went over d/c instructions with Pt-discussed d/c meds, time of last dose, reviewed stroke education, encouraged Pt to go to the ER or call 911 if symptoms return or worsen. Encouraged Pt to exercise, eat a healthy diet, and drink plenty of fluids to prevent constipation or dehydration. Reminded Pt that because she is now taking a blood thinner she should watch for increased bleeding or bruising and speak with her PCP if she has concerns or bleeding persists. Pt denied further questions and was taken out via w/c by RN to front entrance to await a ride home from her friend per her request. Pt had all her belongings with her.
--- NOTE | 2025-03-06 17:57 | DI.MRI.S_ITS ---
PROCEDURE: MR HEAD/BRAIN WO CON
== END 2025-03-06 13:44 | disposition home or self-care (01) ==
LOC: ED 15:49 → AC 15:51
PROVIDERS: Admitting Provider Family Medicine; Emergency Provider Emergency Medicine; PCP Family Medicine; Referring Provider Emergency Medicine; Visit Provider Family Medicine
DX: G45.9 Transient cerebral ischemic attack, unspecified (principal); E03.9 Hypothyroidism, unspecified; E78.5 Hyperlipidemia, unspecified; R29.701 NIHSS score 1
CPT/HCPCS: 36415; 70450; 70496; 70498; 70551; 80053; 80061; 80305; 80320; 81001; 82550; 82962; 83036; 84484; 85025; 85610; 85730; 93005; 93306; 97161; 97165; 97530; 99284; G0378; Q9967